=== PATIENT | male | born 1980 | race Caucasian/White ===

== ENCOUNTER 2017-09-15 21:12 | Emergency (ER) | payer MEDICAID, SELFPAY ==
[2017-09-15 21:14] VITALS: BP 147/96; PULSE 67; RESP 16; TEMP 36.6; O2SAT 95; BMI 27.7
--- NOTE | 2017-09-15 21:41 | ED.VISSUMM ---
- ER Visit Summary Date of Service: 09/15/17 Chief Complaint: Left-sided chest pain History of Present Illness: The patient is a 37 M who presents to the emergency department with left-sided chest pain. Pain started 3 days ago. He started a new [employer] job 4 days ago. There is no history of direct trauma. He denies fever, chills night sweats. He does complain of slight cough. He denies any other symptoms. He made the comment that he has to sleep with his left upper extremity extended. He presented because he spoke to his father and stated he should get checked out to make sure he did not have a heart attack or stroke. He quit smoking 10 years ago. Father has history of coronary disease. He describes the pain as sharp and intermittent with no associated symptoms or radiation. He has no history of PE, DVT and he denies any leg pain, swelling discoloration. Past medical history is negative. Physical Examination: Vital signs are marked for slight elevation blood pressure 147/96. He is PERC negative. HEENT exam is unremarkable. Heart is regular without murmur, gallop or rub. S1 and S2 are normal. Lungs are clear to auscultation with good movement of air bilaterally. He has reproducible pain over the left pectoral region. Abdomen is soft nontender. There is no asymmetry, swelling, discoloration, leg vein distention, palpable cords or tenderness along the distribution of the deep venous system. Test Results: EKG that was ordered per nurse protocol reveals a sinus rhythm with respiratory variation and is otherwise normal. Emergency Department Course and Treatment: Patient's history and physical exam is consistent with muscular pain. He received a dose of Naprosyn and Melvin in the department and a home pack for Melvin and a prescription for Naprosyn. Treatment Plan: Ice, analgesia and appropriate home-going instructions Disposition: Discharged to home Impression: Left sided musculoskeletal strain causing chest pain This note was generated with [employer] dictation software. It may contain incorrect words, spelling, and punctuation that were not noted in review of the chart prior to signing ED Disposition - Plan for ED Patient: Disposition: Home or Assisted Living Chief Complaint: Chest Pain Instructions: ED Strain Chest Wall Prescriptions: Naproxen [Naprosyn] 500 mg PO BID #10 tab Referrals: Care Physician,No Primary [Primary Care Provider] - Jose Antonio MD [STAFF PHYSICIAN] - 1 Week if not improving Additional Instructions: Apply ice for 20-30 minutes 6 times a day for the next 3-4 days. Take medication as prescribed.
--- NOTE | 2017-09-15 21:46 | ED.DCSUM_ITS ---
- ER Visit Summary Date of Service: 09/15/17 Chief Complaint: Left-sided chest pain History of Present Illness: The patient is a 37 M who presents to the emergency department with left-sided chest pain. Pain started 3 days ago. He started a new [employer] job 4 days ago. There is no history of direct trauma. He denies fever, chills night sweats. He does complain of slight cough. He denies any other symptoms. He made the comment that he has to sleep with his left upper extremity extended. He presented because he spoke to his father and stated he should get checked out to make sure he did not have a heart attack or stroke. He quit smoking 10 years ago. Father has history of coronary disease. He describes the pain as sharp and intermittent with no associated symptoms or radiation. He has no history of PE, DVT and he denies any leg pain, swelling discoloration. Past medical history is negative. Physical Examination: Vital signs are marked for slight elevation blood pressure 147/96. He is PERC negative. HEENT exam is unremarkable. Heart is regular without murmur, gallop or rub. S1 and S2 are normal. Lungs are clear to auscultation with good movement of air bilaterally. He has reproducible pain over the left pectoral region. Abdomen is soft nontender. There is no asymmetry, swelling, discoloration, leg vein distention, palpable cords or tenderness along the distribution of the deep venous system. Test Results: EKG that was ordered per nurse protocol reveals a sinus rhythm with respiratory variation and is otherwise normal. Emergency Department Course and Treatment: Patient's history and physical exam is consistent with muscular pain. He received a dose of Naprosyn and [place] in the department and a home pack for [place] and a prescription for Naprosyn. Treatment Plan: Ice, analgesia and appropriate home-going instructions Disposition: Discharged to home Impression: Left sided musculoskeletal strain causing chest pain This note was generated with [employer] ar[employer] dictation software. It may contain incorrect words, spelling, and punctuation that were not noted in review of the chart prior to signing ED Disposition - Plan for ED Patient: Disposition: Home or Assisted Living Chief Complaint: Chest Pain Instructions: ED Strain Chest Wall Prescriptions: Naproxen [Naprosyn] 500 mg PO BID #10 tab Referrals: Care Physician,No Primary [Primary Care Provider] - Jose Antonio MD [STAFF PHYSICIAN] - 1 Week if not improving Additional Instructions: Apply ice for 20-30 minutes 6 times a day for the next 3-4 days. Take medication as prescribed.
--- NOTE | 2017-09-15 21:54 | EKG12_ITS ---
Test Reason : CP Blood Pressure : / mmHG Vent. Rate : 079 BPM Atrial Rate : 079 BPM P-R Int : 130 ms QRS Dur : 088 ms QT Int : 372 ms P-R-T Axes : 005 -06 055 degrees QTc Int : 426 ms Normal sinus rhythm Normal ECG Confirmed by PABLO BURROWS, MAX ([id number]), science editor OLGA LIDIA SIMENTAL ([id number] on 09/17/2017 1:27:03 PM Referred By: NOLAN/DELIA Confirmed By:MAX SHAH MD
[2017-09-15] MEDS: Naproxen 250 MG Tablet 500 MG PO (22:00)
[2017-09-15] MEDS: HYDROcodone Bitartrate/Apap 5/325 Tablet PO ×2 (22:00)
[2017-09-15 22:02] VITALS: BP 133/78; PULSE 73; RESP 18; O2SAT 96
== END 2017-09-15 22:07 | disposition home or self-care (01) ==
PROVIDERS: Emergency Provider Emergency Medicine
DX: R07.9 Chest pain, unspecified (principal); R05 Cough; Z87.891 Personal history of nicotine dependence
CPT/HCPCS: 93005; 99283; A4216